=== PATIENT | female | born 1960 | race Caucasian/White ===

== ENCOUNTER 2025-06-03 13:55 | Emergency (ER) | payer SELFPAY ==
[2025-06-03] VITALS (8 sets, daily range): BP systolic 113–169; BP diastolic 61–86; PULSE 54–68; RESP 15–23; TEMP 36.1; O2SAT 96–99; BMI 23.1
--- OUTSIDE RECORDS SUMMARY | 2025-06-03 14:05 | XMS_ITS | Clinical Summary ---
Author Organization [facility] Address [address] [place] [address] Care Team Providers Care Adolescent Specialist Name Role Phone Kami King Primary Care Provider + Allergies Active Allergy Reactions Criticality Noted Date Comments Amoxicillin-Pot Clavulanate Diarrhea High 07/26/2015 Severe diarrhea with Augmentin Severe diarrhea with Augmentin Codeine Other (See Comments) 04/22/2011 Abdominal cramps, skin crawling - Patient tolerates Morphine, demerol, tramadol, Abdominal cramps, skin crawling - Patient tolerates Morphine, demerol, tramadol Hydrocodone Itching,Other (See Comments) 02/25/2012 ITCHING - Abdominal cramps, skin crawling, ITCHING - Abdominal cramps, skin crawling Hydromorphone Anaphylaxis,Swellin g High 07/31/2014 swelling throat Morphine And Codeine Itching 02/25/2012 Oxycodone Itching,Other (See Comments) 07/31/2014 ITCHING - Abdominal cramps, skin crawling , ITCHING - Abdominal cramps, skin crawling Sulfa Antibiotics Rash Low 07/31/2014 Uncoded Nonscreenable Allergen Other (See Comments) 04/24/2016 GI symptoms Medications Ergocalciferol (VITAMIN D2 PO) Take 2,000 Units by mouth. 7 Active diphenhydrAMINE (BENADRYL) 25 mg tablet Take 2 tablets by mouth as needed. 7 Active ibuprofen (ADVIL, MOTRIN) 200 mg tablet Take 2 tablets by mouth. 7 Active Magnesium Sulfate 70 MG CAPS Take 100 mg by mouth every day. 30 capsule 1 8 Active cetirizine (ZYRTEC) 10 mg tabletIndication s:Allergic rhinitis, unspecified seasonality, unspecified trigger Take 1 tablet by mouth twice daily 180 tablet 3 9 Active SUMAtriptan (IMITREX) 50 mg tablet Take 1 tablet by mouth every 2 hours as needed for headache -Max: 200mg/ 24 hours 30 tablet 1 0 Active pantoprazole (PROTONIX) 40 mg tabletIndication s:Gastritis, presence of bleeding unspecified, unspecified chronicity, unspecified gastritis type Take 1 tablet by mouth every day as needed (do not cut or crush) 90 tablet 0 Active atorvaSTATin (LIPITOR) 20 mg tablet Take 1 tablet by mouth Daily. 3 Active GLUCOSAMINE-COCO DROITIN PO Take by mouth Daily. Active VITAMIN E PO Take by mouth Daily. Active [place]-3 Fatty Acids 1000 MG CAPS Take 1,000 mg by mouth Daily. Active Multiple Vitamin (MULTI-VITAMIN DAILY PO) Take by mouth Daily. Active B [id number] A PO Take by mouth Daily. Active doxepin (SINEQUAN) 10 mg capsuleIndicatio ns:Sleep disorder due to a general medical condition, insomnia type take 1 capsule by mouth NIGHTLY 90 capsule 1 3 Active methylPREDNISolo ne (MEDROL DOSEPAK) 4 mg tablet Follow package directions.. 21 tablet 4 Active gabapentin (NEURONTIN) 300 mg capsule 1-2 cap po qHS 4 Active Active Problems Problem Noted Date Diagnosed Date Postmenopausal atrophic vaginitis 01/17/2020 Gastritis, presence of bleed ing unspecified, unspecified chronicity, unspecified gastritis type 10/09/2018 Overview (11/12/2018): 10/2018 H pylori stool negative PVC (premature ventricular contraction) 05/21/20 18 Overview (11/12/2018): 05/2018 Holter -16% burden started on toprol 08/2018 [facility] EP: PVC mapping 09/09/18 with PVC site of origin mapped to the posterior RVOT with PVC quiescence following ablation in this region Family history of cancer 11/11/2017 SK (seborrheic keratosis) 02/28/2017 Overview (11/12/2018): 02/2018 Derm BPPV (benign paroxysmal positional vertigo) 01/2017 Overview (11/12/2018): Overview: 2016, improving Lateral epicondylitis 05/06/2016 Overview (11/12/2018): Overview: Failed steroids per Dr. Drummond. PMR 04/2016 decided to try Tenex vs PRP. 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 Heredia: Left breast. Lifetime breast cancer risk calculated at 36.5%. Needs lifetime alternating breast MRI and mammogra 03/2018 MRI done birads 2. Allergic rhinitis 03/09/2013 Overview (11/12/2018): Overview: 07/[address] sinus normal. Symptoms may be severe allergic rhinitis. Subclinical hypothyroidism 03/09/2013 Overview (11/12/2018): Overview: 2012 TSH 5 so Saitta treated with synthroid for fatigue. Pt in 2015 has stopped and now has normal TSH levels Adenosis of breast 03/01/2012 Overview (11/12/2018): Overview: Adenosis tumor in both breast. 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 03/01/2012 Immunizations Immunization Administration Dates Next Due INFLUENZA PF TRIV (FLUZONE,FLULAVAL,FLUARIX,AFLU INA) 03/09/2013 INFLUENZA PF, QUADRIVALENT 04/03/2015 INFLUENZA W/PRES QUADRIVALENT 02/25/2012 TDAP, (ADOL/ADULT) 11/10/2016,02/25/2012 Family History Medical History Relation Comments Scoliosis Brother High cholesterol Father Hypertension Father Other cancer Father Breast cancer Mother Cancer Mother breast, skin High cholesterol Mother Hypertension Mother Macular degen Mother Cancer Other 2 Ovarian Ovarian cancer Other 3 Breast cancer Paternal Grandmother Cancer Paternal Grandmother breast Cancer Paternal Uncle 1 Throat Heart disease Paternal Uncle 2 Hypertension Paternal Uncle 2 Diabetes Paternal Uncle 3 resulting in bl indness High cholesterol Paternal Uncle 3 Hypertension Paternal Uncle 3 Kidney disease Paternal Uncle 3 failure Stroke Paternal Uncle 3 multiple Glaucoma Neg Hx Relation Status Comments Brother Father (Age 78) unknown cancer Mother Alive Other 1 Other 2 Other 3 Paternal Grandmother Paternal Uncle 1 Paternal Uncle 2 Paternal Uncle 3 Alive Paternal Uncle 4 Alive Social History Tobacco Use Types Packs/Day Years Used Date Smoking Tobacco: Never Smokeless Tobacco: Never Tobacco Cessation:Counseling Given: Not Answered Alcohol Use Standard Drinks/Week Comments Not Currently 0 (1 standard drink = 0.6 oz pure alcohol) Alcoholic Drinks/day: Alcoholic Drinks/day: Occasional Glass of Wine PHQ-2 Answer Date Recorded PHQ-2 Total Score 0 01/17/2020 Vaping Answer Date Recorded Vaping Use Status Never user 06/24/2023 Alcohol Use History Answer Date Recorde d Alcohol use Not Currently 06/24/2023 Alcohol/week (standard drinks) Not on File 0 06/24/2023 Comments No Sex and Gender Information Value Date Recorded Sex Assigned at Not on file Legal Sex Female 9:09 PM PST Gender Identity Not on file Sexual Orientation Not on file Last Filed Vital Signs Vital Sign Reading Time Taken Comments Blood Pressure 129/74 10/05/2023 2:22 PM PDT Pulse 63 10/05/2023 2:22 PM PDT Temperature 37.1 C (98.7 F) 02/24/2019 4:29 PM PDT Respiratory Rate 16 08/19/2023 9:58 AM PDT Oxygen Saturation 100% 10/05/2023 2:22 PM PDT Inhaled Oxygen Concentration - - Weight 62.6 kg (138 lb) 10/05/2023 2:22 PM PDT Height 162.6 cm (5' 4) 10/05/2023 2:22 PM PDT Body Mass Index 23.69 10/05/2023 2:22 PM PDT Plan of Treatment Health Maintenance Due Date Last Done Comments Medication Management 1960 CT Colonography 01/19/1980 ColoGuard 01/19/1980 FIT 01/19/1980 Sigmoidoscopy 01/19/1980 Vaccine: Pneumococcal 50+ (1 of 1 - PCV) 01/19/2012 Statin Therapy (optimal intensity) 11/10/2018 Colonoscopy 04/08/2022 04/08/2012, 06/2011, 04/08/2012 Colorectal Combination Topic 04/08/2022 Med Mgmt: BUN 07/08/2023 07/08/2022, 0 09/2018, 04/26/2018, Additional history exists Med Mgmt: Cr 07/08/2023 07/08/2022, 0 09/2018, 04/26/2018, Additional history exists Med Mgmt: eGFR 07/08/2023 07/08/2022, 0 09/2018, 04/26/2018, Additional history exists COVID-19 Vaccine (2024-2 6 season) 2025 Vaccine: Influenza (#1) 2025 04/03/20 15, 03/09/2013, 02/25/2012, Additional history exists Vaccine: Dtap/Tdap/Td (5 - T d or Tdap) 11/10/2026 11/10/2016, 02/25/2012, 04/30/2011, Additional history exists Breast Cancer Screening 02/21/2027 02/22/20 25, 11/24/2023, 09/09/2021, Additional history exists Vaccine: RSV Adult (1 - 1-do se 75+ series) 2037 Hepatitis C Screening Completed 02/13/2016 Human Immunodeficiency Virus (HIV) Screening Completed 02/13/2016 Vaccine: Zoster Completed 11/14/2021, 09/17/2021 Vaccine: Hepatitis B Adult Aged Out N o longer eligible based on patient's age to complete this topic Vaccine: Hib Aged Out No longer eligi ble based on patient's age to complete this topic Vaccine: Meningococcal B Aged Out No longer eligible based on patient's age to complete this topic Procedures Procedure Name Priority Date/Time Associated Diagnosis Comments PRECIOUS TOMOSYN SCREENING BILATERAL Routine 02/21/2025 4:28 PM PDT Visit for screening mammogram BASIC METABOLIC PANEL Routine 07/08/2022 11:28 AM PST Tachycardia HIV 1 AND 2 AND O AB, REFLEX CONFIRM Routine 02/13/2016 11:17 AM PDT HEPATITIS C AB, CONFIRM Routine 02/13/2016 11:17 AM PDT COLONOSCOPY Routine 04/08/2012 12:00 AM PDT from Last 3 Months or Most Recently Relevant to Health Maintenance Results * PRECIOUS Tomosyn Screening Bilateral (02/21/2025 4:28 PM PDT) Anatomical Region Laterality Modality Breast Bilateral Mammography 02/22/2025 8:38 AM PDT Impressions 02/22/2025 2:01 PM PDT Right breast: BI-RADS 2 - Benign Left breast: BI-RADS 2 - Benign Overall assessment: BI-RADS 2 - Benign RECOMMENDATION: Right breast: Screening mammogram in one year. Left breast: Screening mammogram in one year. The patient will be sent written notification of these exams results. This exam was reviewed with the aid of the [employer] Project Manager. Narrative 02/22/2025 2:01 PM PDT PRECIOUS TOMOSYN SCREENING BILATERAL HISTORY: Screening exam. History of bilateral excisional biopsies. COMPARISON: Multiple priors, most recent 11/24/2023 BREAST DENSITY: The breasts are heterogeneously dense, which may obscure small masses. FINDINGS: Right breast: No mammographic features of malignancy are demonstrated. Left breast: No mammographic features of malignancy are demonstrated. Bilateral post excision biopsy changes noted. us Nael Elizalde DO IMG MAMMOGRAPHY ORDERA BLES Final Result * Basic Metabolic Panel (07/08/2022 11:28 AM PST) Glucose 98 70 - 99 mg/dL [facility] BUN 14 8 - 27 mg/dL [facility] Creatinine 0.81 0.57 - 1.00 mg/dL [facility] eGFR 83 >59 mL/min/1.7 3 [facility] BUN/Creatinine Ratio 17 12 - 28 [facility] Sodium 138 134 - 144 mmol/L [facility] Potassium 4.7 3.5 - 5.2 mmol/L [facility] Chloride 100 96 - 106 mmol/L [facility] Carbon dioxide 23 20 - 29 mmol/L [facility] Calcium 10.1 8.7 - 10.3 mg/dL [facility] Blood 07/08/2022 11:2 8 AM PST 07/07/2022 9:00 PM PST Narrative [facility] - 07/08/2022 8:06 PM PST Performed at: 01 - [address] [id number] Pipeline Dispatcher: Geo Mcgill MD, Phone: [phone] us Bessy Sherman PA-C LAB BLOOD ORDERABLES Final Re sult [facility] [id number] [phone] * HIV 1 and 2 and O Ab, Reflex Confirm (02/13/2016 11:17 AM PDT) Pathologist [facility] HIV 1/2 Ab and P24 Ag Non Reactive EXTERNAL LAB 02/13/2016 11:1 7 AM PDT us Adri Allen MD LAB BLOOD ORDERABLES Final Resul t EXTERNAL LAB * Hepatitis C Ab, Confirm (02/13/2016 11:17 AM PDT) Hepatitis C Ab <0.1 0.0 - 0.9 s/co ratio EXTERNAL LAB Comment: Negative: < 0.8 Indeterminate: 0.8 - 0.9 Positive: > 0.9 The CDC recommends that a positive HCV antibody result be followed up with a HCV Nucleic Acid Amplification test (580911). 02/13/2016 11:1 7 AM PDT us Adri Allen MD LAB BLOOD ORDERABLES Final Resul t EXTERNAL LAB * Colonoscopy procedures (04/08/2012 12:00 AM PDT) 04/08/2012 Impressions EXTERNAL LAB - 04/08/2012 12:00 AM PDT Historically converted procedure from [facility] Narrative EXTERNAL LAB - 04/08/2012 12:00 AM PDT This order was created through External Result Entry Historically converted procedure from [facility] environment Halie Boyce MD PROCEDURE/MINOR SURGICAL ORDER YENNI Final Result EXTERNAL LAB from Last 3 Months or Most Recently Relevant to Health Maintenance Insurance [facility] PREFERRED PREMERA PREFERRED [employer] PAC[employer] PREFERRED [employer] PACMED PREMERA PREFERRED Care Teams Adolescent Specialist Relationship Specialty Start Date End Date Kami King [place] [address] [place] [id number] PCP - General Physician [employer] 02/21/25
--- NOTE | 2025-06-03 14:14 | EKG_ITS ---
[address] [address] Test Date: 2025-06-03 Pat Name: Nelda Salmeron Department: [facility] Room: Gender: Female Installation Helper: KURTIS GANDHI : 1960 Requested By: Order Number: [id number] Reading MD: Audi Liao Measurements Intervals [place] Rate: 60 P: 54 AK: 138 QRS: 35 QRSD: 84 T: 25 QT: 392 QTc: 392 Interpretive Statements Normal sinus rhythm Possible Left atrial enlargement Electronically Signed On 06-05-2025 10:22:44 PST by Audi Liao
--- NOTE | 2025-06-03 14:14 | DI.RAD.S_ITS ---
PROCEDURE: XR CHEST 1V INDICATIONS: Chest Pain TECHNIQUE: One view of the chest was acquired. COMPARISON: None. FINDINGS: Surgical changes and devices: None. Lungs and pleura: Lungs are clear. No pleural effusions or pneumothorax. Mediastinum: Mediastinal contours appear normal. Heart size is normal. Bones and chest wall: No suspicious bony lesions. Overlying soft tissues appear unremarkable. IMPRESSION: No acute cardiopulmonary abnormality is seen. Dictated by: Balbir Moore M.D. on 06/03/2025 at 14:33 Approved by: Balbir Moore M.D. on 06/03/2025 at 14:33
[2025-06-03 14:32] LABS: Add Manual Diff / Slide Review NO; Hematocrit 39.5 % (36-46); Hemoglobin 13.3 g/dL (12.0-16.0); Lymphocytes Absolute Auto 1800 /uL (1100-4500); Mean Corpuscular HGB Conc 33.8 % (30-36); Mean Corpuscular Hemoglobin 31.0 PG (26-34); Mean Corpuscular Volume 91.7 fL (80-100); Platelet Count 324 X10^3/uL (150-400)
--- NOTE | 2025-06-03 14:40 | ED_ITS ---
HPI - Recheck/Abnormal Lab/Rx General Chief Complaint: Recheck/Abnormal Lab/Rx Stated Complaint: Wonky EKG last week, SOB, dizzy Time Seen by Provider: 06/03/25 14:02 Source: patient Mode of arrival: Ambulatory History of Present Illness HPI narrative: [age] hx of abalation 2019 for pvc not on antiocoagulation with recent right hand surgery early May shortly thereafter started to develop dizziness lightheadedness weakness shortness breath told that walk-in clinic had an irregular EKG and needed to follow up with Cardiology. Since then she has become more weak fatigued no energy and came in to be evaluated. Patient denies active chest pain, belly pain, back pain, urinary complaints, cough, sore throat, nausea, vomiting, diarrhea, but does have decreased appetite. Other than what is stated 14 point review system is negative. Related Data Allergies Allergy/AdvReac Type Severity Reaction Status Date / Time codeine AdvReac Vomiting Verified 06/03/25 14:27 Sulfa (Sulfonamide AdvReac Rash Verified 06/03/25 14:27 Antibiotics) Review of Systems Review of Systems ROS Unobtainable: All systems reviewed & are unremarkable except as noted in HPI and below Patient History Social History Smoking Status: Never smoker Smoking Status: Never smoker Exam Narrative Exam Narrative: GENERAL: [65] year old patient appears stated age. Well-developed patient, in mild distress. HEAD: Atraumatic. Normocephalic. EYES: Pupils equal round and reactive. Extraocular motions intact. No scleral icterus. No injection or drainage. ENT: Nose without bleeding, purulent drainage. Throat without erythema, tonsillar hypertrophy or exudate. Airway patent. NECK: Trachea midline. Non tender CARDIOVASCULAR: Regular rate and rhythm without murmurs, gallops, or rubs. RESPIRATORY: Clear to auscultation. Breath sounds equal bilaterally. No wheezes, rales, or rhonchi. GASTROINTESTINAL: Abdomen soft, non-tender, nondistended. EXTREMITIES: No edema or joint tenderness. BACK: Nontender without deformity or crepitance. No flank tenderness. NEURO: AOx3. SKIN: No rash or erythema of visible areas Initial Vital Signs Initial Vital Signs: Vital Signs Temperature 97 F L 06/03/25 14: Pulse Rate 63 06/03/25 14: Respiratory Rate 16 06/03/25 14:27 Blood Pressure 169/86 H 06/03/25 14:27 Pulse Oximetry 97 06/03/25 14:27 Oxygen Delivery Method Room Air 06/03/25 14:27 Course Orders Ordered: ED Orders 06/03/25 14:14 XR chest 1V Stat EKG-12 Lead Stat 06/03/25 14:24 Complete Blood Count AUTO DIFF Stat Comprehensive Metabolic Panel Stat Lipase Stat Magnesium Stat NT-proBNP (BNP-Adult 18+) Stat PTT Partial Thromboplastin Trung Stat Prothrombin Time INR Stat Troponin & CK Cardiac Panel Stat 06/03/25 16:19 Respiratory Panel (Film Array) Stat 06/03/25 16:22 Troponin I Stat Discontinued Medications Aspirin (Aspirin 81 Mg Chew Tab) 324 mg PO NOW ONE Stop: 06/03/25 14:15 Last Admin: 06/03/25 16:44 Dose: Not Given Documented By: VAN Vital Signs Vital signs: Vital Signs - 8 hr 06/03/25 14:27 Temperature 97 F L Pulse Rate 63 Respiratory Rate 16 Blood Pressure 169/86 H Pulse Oximetry 97 Oxygen Delivery Method Room Air MDM - Recheck/Abnormal Lab/Rx Lab Data 06/03/25 14:24 06/03/25 14:24 Labs: Lab Results 06/03/25 06/03/25 06/03/25 Range/Units 14:24 16:19 16:22 WBC 6.9 (4.5-11.0) X10^3/uL RBC 4.30 (4.0-5.2) X10^6/uL Hgb 13.3 (12.0-16.0) g/dL Hct 39.5 (36-46) % MCV 91.7 (80-100) fL MCH 31.0 (26-34) PG MCHC 33.8 (30-36) % RDW 14.1 (11.6-14.8) % Plt Count 324 (150-400) X10^3/uL Neut % (Auto) 65.5 (50-75) % Lymph % (Auto) 26.4 (25-40) % [place] % (Auto) 5.1 (3-14) % Eos % (Auto) 2.3 (2-4) % Baso % (Auto) 0.7 (0-2) % Neut # (Auto) 4500 (0689-1497) /uL Lymph # (Auto) 1800 (8354-6083) /uL [place] # (Auto) 400 (0-900) /uL Eos # (Auto) 200 (0-450) /uL Baso # (Auto) 0 (0-100) /uL PT 10.2 (9.4-12.5) SECONDS INR 0.9 (0.9-1.3) APTT 28 (25.1-36.5) SECONDS Sodium 139 (137-145) mmol/L Potassium 4.3 (3.4-5.1) mmol/L Chloride 104 (98-107) mmol/L Carbon Dioxide 27 (22-32) mmol/L BUN 22 H (7-17) mg/dL Creatinine 0.61 (0.52-1.04) mg/dL Estimated GFR > 60 (>60) mL/min BUN/Creatinine Ratio 36.1 H (6-22) Glucose 94 (70-99) mg/dL Calcium 10.0 (8.4-10.2) mg/dL Magnesium 2.1 (1.6-2.3) mg/dL Total Bilirubin 0.8 (0.2-1.3) mg/dL AST 35 (14-36) IU/L ALT 27 (<35) IU/L Alkaline Phosphatase 57 (38-126) U/L Total Creatine Kinase 46 (30-135) U/L Troponin I < 0.012 < 0.012 (0.01-0.034) ng/mL NT-Pro-B Natriuret Pep 34 (<125) pg/mL Total Protein 7.6 (6.3-8.2) g/dL Albumin 4.7 (3.5-5.0) g/dL Globulin 2.9 (1.7-4.1) g/dL Albumin/Globulin Ratio 1.6 (1.0-2.8) Lipase 106 (23-300) U/L Chlamy pneumoniae PCR Not detected (Not Detect) Adenovirus (PCR) Not detected (Not Detect) B. pertussis DNA (PCR) Not detected (Not Detect) B.parapertussis DNA PCR Not detected (Not Detecte) Coronavirus OC43 (PCR) Not detected (Not Detect) Coronavirus HKU1 (PCR) Not detected (Not Detect) Coronavirus 229E (PCR) Not detected (Not Detect) SARS-CoV-2 (PCR) Not detected (Not Detecte) Coronavirus NL63 (PCR) Not detected (Not Detect) Human Metapneumovir PCR Not detected (Not Detect) Influenza Type A (PCR) Not detected (Not Detect) Influenza Type B (PCR) Not detected (Not Detect) M. pneumoniae (PCR) Not detected (Not Detect) Parainfluenza 1 (PCR) Not detected (Not Detect) Parainfluenza 2 (PCR) Not detected (Not Detect) Parainfluenza 3 (PCR) Not detected (Not Detect) Parainfluenza 4 (PCR) Not detected (Not Detect) RSV (PCR) Not detected (Not Detect) Entero/Rhino (PCR) Not detected (Not Detect) Urine Dip Bedside Urine Glucose Negative Bedside Urine Bilirubin - Negative Bedside Urine Ketone - Negative Urine Specific [place] 1.010 Bedside Urine Occult Blood - Negative Bedside Urine pH 6.0 Bedside Urine Protein - Negative Bedside Urine Urobilinogen - Negative Bedside Urine Nitrite - Negative Bedside Urine Leukocytes - Negative Esterase Imaging Data Chest x-ray: Radiologist's Impression: [address] [address] XRay Report Signed Patient: Nelda Salmeron MR#: [id number] : 1960 Acct:[id number] Age/Sex: 65 / F Date of Service: 06/03/25 Loc: ED Accession Number: [id number] Procedure: XR chest 1V Ordering Provider: Jose Bassett D.O. PROCEDURE: XR CHEST 1V INDICATIONS: Chest Pain TECHNIQUE: One view of the chest was acquired. COMPARISON: None. FINDINGS: Surgical changes and devices: None. Lungs and pleura: Lungs are clear. No pleural effusions or pneumothorax. Mediastinum: Mediastinal contours appear normal. Heart size is normal. Bones and chest wall: No suspicious bony lesions. Overlying soft tissues appear unremarkable. IMPRESSION: No acute cardiopulmonary abnormality is seen. Dictated by: Balbir Moore M.D. on 06/03/2025 at 14:33 Approved by: Balbir Moore M.D. on 06/03/2025 at 14:33 ECG Data Interpretation: NSR HR 60 MO 138 QRS [address]-t wave change No previous EKG to compare MDM Narrative Medical decision making narrative: All lab work, vital signs, nurse triage note, medication list, previous ER visits, and all imaging studies reviewed. CBC and CMP normal. 2 sets troponin normal. EKG normal sinus rhythm. Chest x-ray showed no acute process. Viral panel negative. Differential diagnosis vertigo dehydration electrolyte derangement arrhythmia. She has upcoming appointment with Cardiology for follow up. Discharge Plan Departure Patient Disposition: Home Clinical Impression: Dizziness, Fatigue Instructions: DI for Fatigue Activity Restrictions/Additional Instructions: Return with new or worsening symptoms. Follow up with cardiology appointment. Keep hydrated. Stand Alone Forms: Patient Portal/API
[2025-06-03 14:43] LABS: INR 0.9 (0.9-1.3); Prothrombin Time 10.2 SECONDS (9.4-12.5)
[2025-06-03 14:46] LABS: PTT Partial Thromboplastin Tim 28 SECONDS (25.1-36.5)
[2025-06-03 14:50] LABS: Alanine Aminotransferase 27 IU/L (<35); Albumin 4.7 g/dL (3.5-5.0); Albumin Globulin Ratio 1.6 (1.0-2.8); Alkaline Phosphatase 57 U/L (38-126); Blood Urea Nitrogen 22 mg/dL (7-17); Calcium 10.0 mg/dL (8.4-10.2); Carbon Dioxide 27 mmol/L (22-32); Chloride 104 mmol/L (98-107); Creatine Kinase 46 U/L (30-135); Estimated Glomerular Filt Rate > 60 mL/min (>60); Globulin 2.9 g/dL (1.7-4.1); Glucose 94 mg/dL (70-99); HEMOLYSIS < 15 (0-50); Lipase 106 U/L (23-300); Magnesium 2.1 mg/dL (1.6-2.3); Potassium 4.3 mmol/L (3.4-5.1); Sodium 139 mmol/L (137-145); Total Protein 7.6 g/dL (6.3-8.2)
[2025-06-03 15:02] LABS: NT-proBNP (BNP-Adult 18+) 34 pg/mL (<125); Troponin I < 0.012 ng/mL (0.01-0.034)
[2025-06-03 17:03] LABS: Troponin I < 0.012 ng/mL (0.01-0.034)
[2025-06-03 17:13] LABS: Coronavirus NL 63 Not Detected (Not Detect); SARS- CoV-2 Not Detected (Not Detecte)
== END 2025-06-03 17:47 | disposition home or self-care (01) ==
PROVIDERS: Emergency Provider Family Medicine
DX: R42 Dizziness and giddiness (principal); R53.83 Other fatigue; R06.02 Shortness of breath
CPT/HCPCS: 36415; 71045; 80053; 81003; 82550; 83690; 83735; 83880; 84484; 85025; 85610; 85730; 87633; 93005; 99283; 99284